=== PATIENT | female | born 1995 | race Hispanic/Latino ===

== ENCOUNTER 2019-09-04 21:30 | Emergency (ER) | payer OTHER ==
[~2019-09-04] VITALS: Ht 152.4 cm; Wt 72.6 kg
[2019-09-04] MEDS ORDERED: KETOROLAC TROMETHAMINE 30 MG/ML VIAL IV STA (21:49)
[2019-09-04] MEDS ORDERED: ZOFRAN4 MG PO (21:56)
[2019-09-04] MEDS ORDERED: FIORICET 50-301 EACH PO (21:56)
[2019-09-04] MEDS ORDERED: NAPROSYN500 MG PO (21:56)
[2019-09-04] MEDS ORDERED: DEXAMETHASONE SOD PHOS 10 MG/1 ML VIAL IV ONE (22:00)
[2019-09-04] MEDS ORDERED: SODIUM CHLORIDE 0.9% 1000ML 1,000 ML IV SCH (22:00)
[2019-09-04] MEDS ORDERED: PROMETHAZINE 12.5MG/ NACL 0.9% 12.5 MG/50 ML BAG IV ONE (22:00)
[2019-09-04] MEDS ORDERED: DEXAMETHASONE SOD PHOS 10 MG/1 ML VIAL ONE (22:11)
[2019-09-04] MEDS ORDERED: SODIUM CHLORIDE 0.9% 1000ML 1,000 ML ONE (22:12)
[2019-09-04] MEDS ORDERED: KETOROLAC TROMETHAMINE 30 MG/ML VIAL ONE (22:12)
[2019-09-04] MEDS ORDERED: SODIUM CHLORIDE 0.9% 50ML 50 ML ONE (22:12)
[2019-09-04] MEDS ORDERED: PROMETHAZINE HCL (IM) 25 MG/ML VIAL ONE (22:12)
--- NOTE | 2019-09-04 22:35 | Diagnostic Imaging Report ---
History: Headaches Comparison studies: None Technique: Axial images were obtained from the skull base to the vertex. Coronal and sagittal reconstructions obtained from the axial data. Dose modulation, iterative reconstruction, and/or weight based adjustment of the mA/kV was utilized to reduce the radiation dose to as low as reasonably achievable. Findings: Scalp/skull: No abnormalities. No fractures, blastic or lytic lesions. Extra-axial spaces: No masses. No fluid collections. Brain sulci: Appropriate for age. Ventricles: Normal in size and configuration. No hydrocephalus. Parenchyma: No abnormal densities. No masses, hemorrhage, acute or chronic cortical vascular insults. Sellar/suprasellar region: No abnormalities Craniocervical junction: Patent foramen magnum. No Chiari one malformation. IMPRESSION: No abnormalities . Signed by: DR Karthik Atkins M.D. on 09/04/2019 10:31 PM
[2019-09-04 22:51] VITALS: BP 109/60
== END 2019-09-04 22:55 | disposition home or self-care (01) ==
LOC: FSED 21:30
DX: G43.109 Migraine with aura, not intractable, without status migrainosus (principal); G44.89 Other headache syndrome
CPT/HCPCS: 70450; 99283; J1100; J1885; J2550; J7030